=== PATIENT | female | born 1960 | race Caucasian/White ===

== ENCOUNTER 2017-01-07 18:41 | Emergency (ER) | payer BC ==
[~2017-01-07] VITALS: Ht 162.6 cm; Wt 87.9 kg
[~2017-01-07 18:41] MED LIST: CYCL1TAB29 PO; CYCL5TAB PO; VENL75XR PO
[2017-01-07 19:03] VITALS: BP 203/120; PULSE 83; RESP 16; TEMP 98.6; O2SAT 97
[2017-01-07 19:37] LABS: BLOOD, URINE NEG (NEG); GLUCOSE,URINE NEG (NEG); KETONE, URINE NEG (NEG); NITRITE,URINE NEG (NEG)
[2017-01-07 19:45] LABS: URINE COLOR YELLOW (YELLW/STRAW); WBC, URINE 0-2 /hpf (0-5)
[2017-01-07 19:46] LABS: COMMENT (UR) CULT NOT INDICATED; CULTURE IF INDICATED CULT NOT INDICATED
[2017-01-07 20:45] VITALS: RESP 18; O2SAT 99
[2017-01-07] MEDS ORDERED: SODIUM CHLORIDE 0.9% FLUSH 10 ML FLUSH IVF PRN (20:45)
[2017-01-07] MEDS ORDERED: FLUT50SP EACH NARE (20:48)
[2017-01-07] MEDS ORDERED: ALPR0.5T3 PO (20:48)
[2017-01-07] MEDS ORDERED: CYCL1TAB29 PO (20:48)
[2017-01-07] MEDS ORDERED: CETI10CA3 PO (20:48)
[2017-01-07] MEDS ORDERED: ESTR0.5T PO (20:48)
[2017-01-07 21:10] LABS: AUTOMATED NEUTROPHIL # 7.8 TH/MM3 (1.8-7.7); BASOPHIL # 0.1 TH/MM3 (0-0.2); BASOPHIL % 0.6 % (0.0-2.0); EOSINOPHIL # 0.1 TH/MM3 (0-0.4); EOSINOPHIL % 0.8 % (0.0-4.0); HEMATOCRIT 43.6 % (35.0-46.0); HEMO FLAGS DIFF FINAL; LYMPH % 27.3 % (9.0-44.0); LYMPHOCYTE # 3.2 TH/MM3 (1.0-4.8); MEAN CELL VOLUME 81.5 FL (80.0-100.0); MEAN CORPUSCULAR HGB CONC 33.1 % (32.0-36.0); MONO % 4.6 % (0.0-8.0); NEUT % 66.7 % (16.0-70.0); PLATELET COUNT 198 TH/MM3 (150-450); RED BLOOD COUNT 5.35 MIL/MM3 (4.00-5.30); RED CELL DISTRIBUTION WIDTH 13.7 % (11.6-17.2); WHITE BLOOD COUNT 11.7 TH/MM3 (4.0-11.0)
--- NOTE | 2017-01-07 21:17 | PD ---
HPI Chief Complaint: Numbness/Tingling Time Seen by Provider: 20:44 Travel History International Travel<30 days: No Contact w/Intl Traveler<30days: No Traveled to known affect area: No History of Present Illness HPI C/O LEFT LE PATCHY NUMBNESS AND TINGLING FOR ALMOST 2 WEEKS, RECENTLY (ABOUT 1 MONTHY AGO) STARTED ON CONTROL PILLS, ALSO TODAY C/O HEADPAIN, SHARP, GENERAL HEAD, ASSOC WITH TINGLING TO LEFT SIDE OF FACE ALSO...NO WEAKNESS OR PARALYSIS. PCP UNABLE TO WORKUP BECAUSE HE IS OUTOF TOWN [facility] Past Medical History Anxiety: Yes Cardiovascular Problems: Yes (htn on meds) Diminished Hearing: No Hypertension: Yes Immunizations Current: Yes Tetanus Vaccination: Unknown Influenza Vaccination: Yes ?: Not Menopausal: Yes : 5 Para: 4 Miscarriage: 1 Past Surgical History Hysterectomy: Yes Social History Alcohol Use: No Tobacco Use: No Substance Use: No Allergies-Medications (Allergen,Severity, Reaction): Coded Allergies: No Known Allergies (Verified , 01/07/17) Reported Meds & Prescriptions Reported Meds & Active Scripts Active Reported Zyrtec (Cetirizine HCl) 10 Mg Capsule 10 Mg PO DAILY Fluticasone Nasal [place] 50 Mcg/Act Naspr 50 Mcg EACH NARE DAILY 50 mcg/spray Flexeril (Cyclobenzaprine HCl) 10 Mg Tab 10 Mg PO TID PRN Alprazolam 0.5 Mg Tab 0.5 Mg PO Q8H PRN Estradiol 0.5 Mg Tab 0.5 Mg PO DAILY Review of Systems Except as stated in HPI: all other systems reviewed are Neg HENT: Positive: Headaches Neurologic: Positive: Paresthesia Physical Exam Narrative GENERAL: SKIN: Warm and dry. HEAD: Atraumatic. Normocephalic. EYES: Pupils equal and round. No scleral icterus. No injection or drainage. ENT: No nasal bleeding or discharge. Mucous membranes pink and moist. NECK: Trachea midline. No JVD. CARDIOVASCULAR: Regular rate and rhythm. RESPIRATORY: No accessory muscle use. Clear to auscultation. Breath sounds equal bilaterally. GASTROINTESTINAL: Abdomen soft, non-tender, nondistended. Hepatic and splenic margins not palpable. MUSCULOSKELETAL: Extremities without clubbing, cyanosis, or edema. No obvious deformities. NEUROLOGICAL: Awake and alert. No obvious cranial nerve deficits. Motor grossly within normal limits. Five out of 5 muscle strength in the arms and legs. Normal speech. PSYCHIATRIC: Appropriate mood and affect; insight and judgment normal. Data Data Last Documented VS Vital Signs Date Time Temp Pulse Resp B/P Pulse Ox O2 Delivery O2 Flow Rate FiO2 01/07/17 22:30 75 18 99 Room Air 01/07/17 19:03 98.6 203/120 Orders Urinalysis - C+S If Indicated (01/07/17 19:08) Complete Blood Count With Diff (01/07/17 20:45) Comprehensive Metabolic Panel (01/07/17 20:45) B-Type Natriuretic Peptide (01/07/17 20:45) Act Partial Throm Time (Ptt) (01/07/17 20:45) Prothrombin Time / Inr (Pt) (01/07/17 20:45) Ckmb (Isoenzyme) Profile (01/07/17 20:45) Troponin I (01/07/17 20:45) Iv Access Insert/Monitor (01/07/17 20:45) Electrocardiogram (01/07/17 20:45) Ecg Monitoring (01/07/17 20:45) Oximetry (01/07/17 20:45) Oxygen Administration (01/07/17 20:45) Ct Pulmonary Angiogram (01/07/17 20:45) Sodium Chloride 0.9% Flush (Ns Flush) (01/07/17 20:45) Ct Brain W/O Iv Contrast(Rout) (01/07/17 ) Us Leg Venous Doppler (01/07/17 ) Labs Laboratory Tests Test 01/07/17 01/07/17 19:10 21:00 Urine Color YELLOW Urine Turbidity CLEAR Urine pH 6.0 Urine Specific [place] 1.006 Urine Protein NEG mg/dL Urine Glucose (UA) NEG mg/dL Urine Ketones NEG mg/dL Urine Occult Blood NEG Urine Nitrite NEG Urine Bilirubin NEG Urine Leukocyte Esterase NEG Urine WBC 0-2 /hpf Microscopic Urinalysis Comment CULT NOT INDICATED White Blood Count 11.7 TH/MM3 Red Blood Count 5.35 MIL/MM3 Hemoglobin 14.4 GM/DL Hematocrit 43.6 % Mean Corpuscular Volume 81.5 FL Mean Corpuscular Hemoglobin 27.0 PG Mean Corpuscular Hemoglobin 33.1 % Concent Red Cell Distribution Width 13.7 % Platelet Count 198 TH/MM3 Mean Platelet Volume 10.7 FL Neutrophils (%) (Auto) 66.7 % Lymphocytes (%) (Auto) 27.3 % Monocytes (%) (Auto) 4.6 % Eosinophils (%) (Auto) 0.8 % Basophils (%) (Auto) 0.6 % Neutrophils # (Auto) 7.8 TH/MM3 Lymphocytes # (Auto) 3.2 TH/MM3 Monocytes # (Auto) 0.5 TH/MM3 Eosinophils # (Auto) 0.1 TH/MM3 Basophils # (Auto) 0.1 TH/MM3 CBC Comment DIFF FINAL Differential Comment Prothrombin Time 11.0 SEC Prothromb Time International 1.0 RATIO Ratio Activated Partial 27.9 SEC Thromboplast Time Sodium Level 141 MEQ/L Potassium Level 4.0 MEQ/L Chloride Level 105 MEQ/L Carbon Dioxide Level 27.8 MEQ/L Anion Gap 8 MEQ/L Blood Urea Nitrogen 22 MG/DL Creatinine 0.81 MG/DL Estimat Glomerular Filtration 73 ML/MIN Rate Random Glucose 87 MG/DL Calcium Level 9.2 MG/DL Total Bilirubin 0.4 MG/DL Aspartate Amino Transf 27 U/L (AST/SGOT) Alanine Aminotransferase 63 U/L (ALT/SGPT) Alkaline Phosphatase 103 U/L Total Creatine Kinase 81 U/L Troponin I LESS THAN 0.02 NG/ML B-Type Natriuretic Peptide 22 PG/ML Total Protein 7.9 GM/DL Albumin 4.1 GM/DL MDM Medical Decision Making Medical Screen Exam Complete: Yes Emergency Medical Condition: Yes Medical Record Reviewed: Yes Interpretation(s) NSR 69, NL INTERVALS, NO STEMI PATTERN Differential Diagnosis ICH V PE V DVT V STEMI V NONSTEMI V COMPLEX MIGRAINE Narrative Course NO ICH ON CT HEAD.....CT CHEST SHOWED NO CENTRAL PE, NO PERICARDIAL EFFUSION NOR ANY MASSES NOTED. NO E/O STEMI OR NONSTEMI ON LABS. PATIENT IS SATISFIED WITH FINDINGS AND WILL F/U WITH PCP FOR ADDITIONAL WORK UP INCLUDING A TIA WORKUP I EXPLAINED TO HER. Diagnosis Primary Impression: PARESTHESIA NOS Additional Instructions: PLEASE FOLLOWUP WITH YOUR PRIMARY CARE DOCTOR FOR A REFERRAL TO NEUROLOGIST FOR A TIA TYPE WORKUP. TODAY NO EVIDENCE OF HEART ATTACK, BLOOD CLOT TO LEG OR CHEST, NO PERICARDIAL EFFUSION, NO BRAIN MASS OR BLEED EITHER. ELECTROLYTE, LIVER, KIDNEY AND PANCREAS FUNCTIONS WITHIN NORMAL LIMIT Disposition: 01 DISCHARGE HOME Condition: Stable Abel Guzman MD Jan 07, 2017 21:17
[2017-01-07 21:18] LABS: CHLORIDE 105 MEQ/L (98-107); SODIUM (NA) 141 MEQ/L (136-145)
[2017-01-07 21:22] LABS: ANION GAP 8 MEQ/L (5-15); BICARBONATE 27.8 MEQ/L (21.0-32.0); BLOOD UREA NITROGEN 22 MG/DL (7-18)
[2017-01-07 21:25] LABS: ALT (GPT) 63 U/L (10-53); AST (GOT) 27 U/L (15-37); GLOMERULAR FILTRATION RATE 73 ML/MIN (>89)
[2017-01-07 21:26] LABS: TOTAL BILIRUBIN ADULT 0.4 MG/DL (0.2-1.0)
[2017-01-07 21:27] LABS: ALKALINE PHOSPHATASE 103 U/L (45-117)
[2017-01-07 21:33] LABS: APTT (PATIENT) 27.9 SEC (24.3-30.1)
[2017-01-07 21:40] VITALS: BP 135/87; PULSE 70; RESP 18; O2SAT 99
[2017-01-07 21:41] LABS: CREATINE KINASE 81 U/L (26-192)
[2017-01-07] MEDS ORDERED: IOHEXOL 350 MG/ML 10 ML VIAL (for RAD DIAG) IV ONE (22:30)
--- NOTE | 2017-01-07 22:59 | RADRPT ---
EXAM DATE/TIME: 01/07/2017 21:39 [facility] COMPARISON: No previous studies available for comparison. INDICATIONS : Left sided facial numbness. Left sided upper and lower extremity numbness. RADIATION DOSE: 1 CTDIvol (mGy) MEDICAL HISTORY : Cerebrovascular disease. SURGICAL HISTORY : None. ENCOUNTER: Initial ACUITY: 1 day PAIN SCALE: 5/10 LOCATION: cranial TECHNIQUE: Multiple contiguous axial images were obtained of the head. Using automated exposure control and adj ustment of the mA and/or kV according to patient size, radiation dose was kept as low as reasonably a chievable to obtain optimal diagnostic quality images. DICOM format image data is available electro nically for review and comparison. FINDINGS: CEREBRUM: The ventricles are normal for age. No evidence of midline shift, mass lesion, hemorrhage or acute in farction. No extra-axial fluid collections are seen. POSTERIOR FOSSA: The cerebellum and brainstem are intact. The 4th ventricle is midline. The cerebellopontine angle i s unremarkable. EXTRACRANIAL: The visualized portion of the orbits is intact. SKULL: The calvaria is intact. No evidence of skull fracture. CONCLUSION: Negative noncontrast CT brain. Flaco Garza MD on January 07, 2017 at 22:56 Board Certified Radiologist. This report was verified electronically.
--- NOTE | 2017-01-07 23:20 | RADRPT ---
EXAM DATE/TIME: 01/07/2017 22:19 [facility] COMPARISON: No previous studies available for comparison. INDICATIONS : Left leg numbness. MEDICAL HISTORY : Hypertension. Anxiety. Headache. Paresthesia. SURGICAL HISTORY : Hysterectomy. ENCOUNTER: Initial ACUITY: 2 weeks PAIN SCORE: 0/10 LOCATION: Left leg. TECHNIQUE: Venous ultrasound of the leg was performed from the inguinal ligament to the proximal calf. Real-sohan e, color Doppler and spectral tracing, compression and augmentation techniques were used. FINDINGS: There is normal compressibility of the deep venous system from the inguinal region to the proximal ca lf. No echogenic clot is seen in the lumen of the common femoral, femoral, popliteal, and posterior tibial veins. There is a normal response of the venous system to proximal and distal augmentation an d respiration. CONCLUSION: The study is negative for deep venous thrombosis left lower extremity. Flaco Garza MD on January 07, 2017 at 23:18 Board Certified Radiologist. This report was verified electronically.
--- NOTE | 2017-01-07 23:21 | RADRPT ---
EXAM DATE/TIME: 01/07/2017 21:45 [facility] COMPARISON: No previous studies available for comparison. INDICATIONS : Shortness of breath, left upper extremity weakness. IV CONTRAST: 70 cc Omnipaque 350 (iohexol) IV RADIATION DOSE: 16.03 CTDIvol (mGy) MEDICAL HISTORY : Cerebrovascular disease. SURGICAL HISTORY : Hysterectomy. ENCOUNTER: Initial ACUITY: 1 day PAIN SCALE: 2/10 LOCATION: chest TECHNIQUE: Volumetric scanning of the chest was performed using a pulmonary embolism protocol MIP images were re constructed. Using automated exposure control and adjustment of the mA and/or kV according to patien t size, radiation dose was kept as low as reasonably achievable to obtain optimal diagnostic quality images. DICOM format image data is available electronically for review and comparison. Follow-up recommendations for incidentally detected pulmonary nodules are based at a minimum on nodul e size and patient risk factors according to Fleischner Society Guidelines. FINDINGS: PULMONARY ARTERIES: There is suboptimal opacification of the pulmonary arterial system. There is mild arterial enhancemen t in the main and right and left branch vessels which are patent. The primary branch vessels demonstr ate no filling defects as well. The distal arterial vasculature is suboptimally opacified and evaluat ed. LUNGS: There is no consolidation or pneumothorax . No concerning pulmonary nodule is visualized. PLEURAE: There is no pleural thickening or pleural effusion. MEDIASTINUM: There is good visualization of the great vessels of the middle mediastinum. No evidence of mediastin al or hilar adenopathy/mass. MUSCULOSKELETAL: Within normal limits for patient age. MISCELLANEOUS: The visualized upper abdominal organs demonstrate no acute abnormality. CONCLUSION: 1. Suboptimal examination due to 2 suboptimal opacification of the pulmonary arteries. 2. No evidence of central pulmonary embolism. The distal vessels are suboptimally visualized. 3. The lungs are clear. Pietro Brock MD on January 07, 2017 at 23:17 Board Certified Radiologist. This report was verified electronically.
[2017-01-07 23:40] VITALS: BP 127/83; PULSE 62; RESP 16; O2SAT 97
--- NOTE | 2017-01-08 12:27 | EKG ---
Date Performed: 01/07/2017 Time Performed: 19:11:53 PTAGE: 56 years EKG: Sinus rhythm NORMAL ECG NO PREVIOUS TRACING DOCTOR: Kevin Mary Interpretating Date/Time 01/09/2017 07:02:40
--- NOTE | 2017-01-08 14:37 | EKG ---
Date Performed: 01/07/2017 Time Performed: 21:30:37 PTAGE: 56 years EKG: Sinus rhythm NORMAL ECG Compared to prior tracing no significant change PREVIOUS TRACING : 01/07/2017 19.11 DOCTOR: Kevin Mary Interpretating Date/Time 01/08/2017 14:36:56
== END 2017-01-08 00:16 | disposition home or self-care (01) ==
LOC: PHED 18:41
DX: R20.2 Paresthesia of skin (principal); R20.0 Anesthesia of skin; R51 Headache; I10 Essential (primary) hypertension; Z79.899 Other long term (current) drug therapy; Z86.59 Personal history of other mental and behavioral disorders; Z86.79 Personal history of other diseases of the circulatory system
CPT/HCPCS: 70450; 71275; 80053; 81001; 82550; 83880; 84484; 85025; 85610; 85730; 93005; 93971; 99285; Q9967